=== PATIENT | female | born 1970 | race Caucasian/White ===

== ENCOUNTER 2017-08-09 16:21 | Inpatient (IN) | payer MEDICAID ==
[~2017-08-09] VITALS: Ht 152.4 cm; Wt 71.3 kg
[2017-08-09 16:25] VITALS: Ht 152.4 cm; Wt 71.3 kg
[2017-08-09 17:59] LABS: BASOPHIL % 0.2 % (0-2); RED CELL DISTRIBUTION WIDTH 14.5 % (11.5-14.5)
[2017-08-09 18:00] LABS: PLATELET COUNT 420 x10^3mcL (130-400)
[2017-08-09 18:06] LABS: ALBUMIN 3.4 g/dL (3.4-5.0); ALKALINE PHOSPHATASE 113 U/L (46-116); ALT/SGPT 55 U/L (14-59); AMYLASE 29 U/L (25-115); AST/SGOT 49 U/L (15-37); BILIRUBIN TOTAL 0.31 mg/dL (0.20-1.00); CALCIUM 8.6 mg/dL (8.5-10.1); CARBON DIOXIDE 23.1 mmol/L (21-32); CHLORIDE SERUM 97 mmol/L (98-107); CREATININE SERUM 0.9 mg/dL (0.6-1.0); GFR1 > 60 mL/min; GLUCOSE SERUM 304 mg/dL (74-106); LIPASE 106 IU/L (73-393); SODIUM SERUM 135 mmol/L (136-145)
[2017-08-09 18:09] LABS: TOTAL PROTEIN, SERUM 8.4 g/dL (6.4-8.2)
[2017-08-09 18:10] LABS: POTASSIUM SERUM 2.5 mmol/L (3.5-5.1)
[2017-08-09 19:47] LABS: T3 TOTAL 0.9 ng/mL
[2017-08-09 20:05] LABS: MAGNESIUM 1.8 mg/dL (1.8-2.4); PHOSPHOROUS 1.6 mg/dL (2.5-4.9)
[2017-08-09 20:09] LABS: CHOLESTEROL/HDL RATIO 2.7; FREE T4 1.39 ng/dL (0.76-1.46); FREE THYROXINE INDEX 3.2 ug/dL (1.4-4.5); T4(THYROXINE) 9.2 ug/dL (4.7-13.3)
[2017-08-09 21:30] VITALS: BP 117/69
[2017-08-09] MEDS ORDERED: METFORMIN HCL850 MG PO (21:42)
[2017-08-09] MEDS ORDERED: NEU300 PO (21:42)
[2017-08-09] MEDS ORDERED: AMLODIPINE BESY10 M2 PO (21:43)
[2017-08-09] MEDS ORDERED: GLUCOTROL10 MG PO (21:44)
[2017-08-09] MEDS ORDERED: ZESTRIL20 MG PO (21:45)
[2017-08-09] MEDS ORDERED: HYDROCHLOROTHIA25 MG PO (21:46)
[2017-08-09] MEDS ORDERED: SIMVASTATIN20 M1 PO (21:47)
[2017-08-09] MEDS ORDERED: SIMVASTATIN10 M1 PO (21:47)
[2017-08-09 22:17] LABS: CALCIUM 7.8 mg/dL (8.5-10.1); CARBON DIOXIDE 24.3 mmol/L (21-32); CHLORIDE SERUM 103 mmol/L (98-107); CREATININE SERUM 0.7 mg/dL (0.6-1.0); GFR1 > 60 mL/min; GLUCOSE SERUM 181 mg/dL (74-106); SODIUM SERUM 140 mmol/L (136-145)
[2017-08-09 22:19] LABS: POTASSIUM SERUM 2.3 mmol/L (3.5-5.1)
[2017-08-10 06:35] LABS: BASOPHIL % 0.3 % (0-2); PLATELET COUNT 357 x10^3mcL (130-400)
[2017-08-10 06:37] LABS: CALCIUM 7.6 mg/dL (8.5-10.1); CARBON DIOXIDE 24.6 mmol/L (21-32); CHLORIDE SERUM 108 mmol/L (98-107); CREATININE SERUM 0.6 mg/dL (0.6-1.0); GFR1 > 60 mL/min; GLUCOSE SERUM 145 mg/dL (74-106); SODIUM SERUM 143 mmol/L (136-145)
[2017-08-10 06:46] VITALS: BP 124/77
[2017-08-10 06:49] LABS: RED CELL DISTRIBUTION WIDTH 14.8 % (11.5-14.5)
[2017-08-10 08:08] LABS: microscopic required? YES; urine erythrocyte NEGATIVE (NEGATIVE)
[2017-08-10 08:26] LABS: AMPHETAMINE QUAL UR NONE DETECTED (NEG <=1000)
[2017-08-10 09:31] VITALS: BP 127/80
[2017-08-10 15:17] LABS: ALKALINE PHOSPHATASE 126 U/L (46-116); ALT/SGPT 90 U/L (14-59); AST/SGOT 145 U/L (15-37); BILIRUBIN TOTAL 0.6 mg/dL (0.20-1.00); CALCIUM 6.6 mg/dL (8.5-10.1); CARBON DIOXIDE 22.4 mmol/L (21-32); CHLORIDE SERUM 108 mmol/L (98-107); CREATININE SERUM 0.6 mg/dL (0.6-1.0); GFR1 > 60 mL/min; GLUCOSE SERUM 235 mg/dL (74-106); SODIUM SERUM 142 mmol/L (136-145); TOTAL PROTEIN, SERUM 6.5 g/dL (6.4-8.2)
[2017-08-10 15:23] LABS: ALBUMIN 2.6 g/dL (3.4-5.0)
[2017-08-10 15:40] VITALS: BP 117/78
[2017-08-10 17:13] VITALS: BP 136/84; BP 142/70
[2017-08-10 21:21] VITALS: BP 139/91
[2017-08-11 05:20] VITALS: BP 136/80
[2017-08-11 05:52] LABS: BASOPHIL % 0.3 % (0-2); PLATELET COUNT 355 x10^3mcL (130-400)
[2017-08-11 06:05] LABS: RED CELL DISTRIBUTION WIDTH 14.9 % (11.5-14.5)
[2017-08-11 06:14] LABS: CALCIUM 6.9 mg/dL (8.5-10.1); CHLORIDE SERUM 104 mmol/L (98-107); CREATININE SERUM 0.5 mg/dL (0.6-1.0); GFR1 > 60 mL/min; GLUCOSE SERUM 212 mg/dL (74-106); MAGNESIUM 1.7 mg/dL (1.8-2.4); PHOSPHOROUS 1.7 mg/dL (2.5-4.9); POTASSIUM SERUM 3.1 mmol/L (3.5-5.1); SODIUM SERUM 138 mmol/L (136-145)
[2017-08-11 09:53] VITALS: BP 138/85
[2017-08-11 10:21] LABS: ALBUMIN 2.8 g/dL (3.4-5.0); BILIRUBIN DIRECT 0.24 mg/dL (0.0-0.2); BILIRUBIN TOTAL 0.44 mg/dL (0.20-1.00); TOTAL PROTEIN, SERUM 6.9 g/dL (6.4-8.2)
[2017-08-11 13:41] VITALS: BP 144/81
[2017-08-11 17:27] VITALS: BP 132/86
[2017-08-11 20:56] VITALS: BP 137/86
[2017-08-12 05:53] VITALS: BP 135/86
[2017-08-12 06:16] LABS: BASOPHIL % 0.3 % (0-2); PLATELET COUNT 357 x10^3mcL (130-400)
[2017-08-12 06:36] LABS: CALCIUM 7.4 mg/dL (8.5-10.1); CHLORIDE SERUM 109 mmol/L (98-107); CREATININE SERUM 0.5 mg/dL (0.6-1.0); GFR1 > 60 mL/min; GLUCOSE SERUM 114 mg/dL (74-106); MAGNESIUM 1.9 mg/dL (1.8-2.4); PHOSPHOROUS 1.7 mg/dL (2.5-4.9); POTASSIUM SERUM 3.1 mmol/L (3.5-5.1); SODIUM SERUM 143 mmol/L (136-145)
[2017-08-12 09:58] VITALS: BP 148/89
[2017-08-12 14:01] LABS: CALCIUM 7.7 mg/dL (8.5-10.1); CARBON DIOXIDE 23.4 mmol/L (21-32); CHLORIDE SERUM 106 mmol/L (98-107); CREATININE SERUM 0.6 mg/dL (0.6-1.0); GFR1 > 60 mL/min; GLUCOSE SERUM 206 mg/dL (74-106); POTASSIUM SERUM 3.9 mmol/L (3.5-5.1); SODIUM SERUM 140 mmol/L (136-145)
[2017-08-12 14:09] VITALS: BP 136/84
[2017-08-12] MEDS ORDERED: APAP/HYDROCODON1 T13 PO (15:21)
[2017-08-12 16:23] VITALS: BP 136/84
[2017-08-12 23:20] LABS: POTASSIUM SERUM 2.9 mmol/L (3.5-5.1)
== END 2017-08-12 17:30 | disposition home or self-care (01) | DRG 263 ==
LOC: ED 16:21 → DU 18:24
PROVIDERS: Emergency Medicine; Family Medicine; Surgery
PROC: 0FT44ZZ Resection of Gallbladder, Percutaneous Endoscopic Approach (ICD-10-PCS; principal; 2017-08-10 12:30)
DX: K80.62 Calculus of gallbladder and bile duct with acute cholecystitis without obstruction (principal); E43 Unspecified severe protein-calorie malnutrition; K76.0 Fatty (change of) liver, not elsewhere classified; E11.65 Type 2 diabetes mellitus with hyperglycemia; I10 Essential (primary) hypertension; E87.6 Hypokalemia; E78.5 Hyperlipidemia, unspecified; E66.9 Obesity, unspecified; Z68.30 Body mass index [BMI] 30.0-30.9, adult; E83.51 Hypocalcemia; E83.39 Other disorders of phosphorus metabolism; E83.42 Hypomagnesemia; K29.70 Gastritis, unspecified, without bleeding
CPT/HCPCS: 82962; 83880; 84439; 94150; J0330; J0690; J1644; J1815; J1885; J1956; J2250; J2270; J2405; J2704; J2710; J3010; J3480; J3490; J7030; Q0092; Q9967